=== PATIENT | male | born 1995 | race Caucasian/White ===

== ENCOUNTER → 2021-07-02 | Outpatient (CLI) | payer BC ==
[~2021-07-02] MED LIST: ASPIRIN CHEWABL81 MG PO; LODINE CAP 300300 MG PO; ZOFRAN ODT 4 MG4 MG PO
[2021-07-02 15:16] LABS: HEMOGLOBIN 16.9 gm/dl (14.0-17.5); RED BLOOD COUNT 5.52 M/UL (4.20-5.50)
[2021-07-02 15:40] LABS: BUN/CREATININE RATIO 12 (0-10)
== END ==
LOC: LAB 13:48
PROVIDERS: Nurse Practitioner
DX: R10.11 Right upper quadrant pain (principal); R10.13 Epigastric pain; R11.0 Nausea
CPT/HCPCS: 36415; 74022; 80053; 83690; 85025

== ENCOUNTER 2021-11-27 18:35 | Emergency (ER) | payer BC ==
[2021-11-27 20:25] LABS: HEMOGLOBIN 15.9 gm/dl (14.0-17.5); RED BLOOD COUNT 5.33 M/UL (4.20-5.50); WHITE BLOOD COUNT 10.6 K/UL (4.5-11.0)
[2021-11-27 20:44] LABS: BUN/CREATININE RATIO 12 (0-10)
[2021-11-27] MEDS ORDERED: BACTRIM DS TAB1 EACH PO (21:05)
[2021-11-27] MEDS ORDERED: CEPHALEXIN500 M1 PO (21:05)
== END 2021-11-27 21:28 | disposition home or self-care (01) ==
LOC: ER1 18:35
PROVIDERS: Physician Assistant Medical
DX: L03.116 Cellulitis of left lower limb (principal); F17.200 Nicotine dependence, unspecified, uncomplicated
CPT/HCPCS: 80053; 85025; 85379; 85610; 85730; 99283